=== PATIENT | male | born 1995 | race Caucasian/White ===

== ENCOUNTER 2024-07-14 14:28 | Emergency (ER) | payer MEDICAID ==
[~2024-07-14] VITALS: Ht 167.6 cm; Wt 75.0 kg
[~2024-07-14 14:28] MED LIST: LINE600T14 PO; TOPUD PO
[2024-07-14 14:39] VITALS: O2SAT 100
[2024-07-14] MEDS ORDERED: LORAZEPAM 2MG/ML INJ IV ONE (15:30)
[2024-07-14 15:33] LABS: BASOPHILS % 0.5 % (0.0-2.0); EOSINOPHILS % 1.4 % (0.0-5.0); HEMOGLOBIN. 13.9 g/dL (14.0-18.0); LYMPHOCYTES % 27.1 % (20.0-50.0); MEAN CORPUSCULAR HEMOGLOBIN 30.3 pg (28.0-32.0); MEAN CORPUSCULAR HGB CONC 33.2 g/dL (31.0-37.0); MEAN CORPUSCULAR VOLUME 91.2 fL (80.0-94.0); MEAN PLATELET VOLUME 9.4 fl (7.4-10.4); MONOCYTES % 9.3 % (2.0-8.0); NEUTROPHILS % 61.7 % (40.0-76.0); PLATELET 286 x1000/uL (130-400); RED CELL DISTRIBUTION WIDTH 13.3 % (11.6-14.6); WHITE BLOOD COUNT 8.1 x1000/uL (4.5-11.0)
[2024-07-14 15:38] LABS: CHLORIDE 91 mEq/L (98-107); POTASSIUM 3.5 mEq/L (3.5-5.1); SODIUM 124 mEq/L (136-145)
[2024-07-14 15:39] LABS: CALCIUM 10.3 mg/dL (8.7-10.4); CARBON DIOXIDE 25 mEq/L (21-32)
[2024-07-14 15:44] LABS: GLUCOSE 103 mg/dL (70-105); UREA NITROGEN BLOOD 11 mg/dL (9-23)
[2024-07-14 15:46] LABS: ALANINE AMINOTRANSFERASE 18 IU/L (10-49); ALBUMIN 5.2 g/dL (3.2-4.8); ASPARTATE AMINOTRANSFERASE 29 IU/L (<34); BILIRUBIN DIRECT 0.2 mg/dL (<=3.0); BILIRUBIN TOTAL 0.8 mg/dL (0.1-1.0)
[2024-07-14 15:47] LABS: ETHANOL BLOOD < 10 mg/dL (<10)
[2024-07-14 15:49] LABS: CREATINE KINASE 391 IU/L (46-171)
[2024-07-14] MEDS: SODIUM CHLORIDE 0.9% 1,000 ML IV ONE (15:54)
[2024-07-14] MEDS: ONDANSETRON HCL 4MG/2ML INJ IV STA (15:55)
[2024-07-14] MEDS: KETOROLAC 30MG/ML VIAL IV STA (15:55)
[2024-07-14 17:12] LABS: TROPONIN I HIGH SENSITIVITY < 4 ng/L (3.0-53)
[2024-07-14 17:38] VITALS: BP 149/94; PULSE 80; RESP 17; TEMP 36.89184; O2SAT 100
== END 2024-07-14 17:42 | disposition home or self-care (01) ==
LOC: ER 14:34
DX: R07.89 Other chest pain (principal); F41.9 Anxiety disorder, unspecified; M62.82 Rhabdomyolysis; E87.1 Hypo-osmolality and hyponatremia; I10 Essential (primary) hypertension; F12.10 Cannabis abuse, uncomplicated
CPT/HCPCS: 80076; 80048; 80320; 82550; 83690; 85025; 84484; 36415; 71045; 93005; 96361; 96374; 96375; 99285; J1885; J2405; J7030; G0480

== ENCOUNTER 2024-08-02 22:36 | Emergency (ER) | payer MEDICAID ==
[~2024-08-02] VITALS: Ht 167.6 cm; Wt 73.0 kg
[2024-08-02 22:40] VITALS: O2SAT 100
[2024-08-03] MEDS ORDERED: TETANUS, DIPHTHERIA, PERTUSSIS VAC/PF 0.5ML (>10YR OLD) IM ONE (02:45)
[2024-08-03] MEDS: TETANUS, DIPHTHERIA, PERTUSSIS VAC/PF 0.5ML (>10YR OLD) IM ONE (02:59)
[2024-08-03 03:01] VITALS: BP 127/70; PULSE 87; RESP 15; TEMP 37.05852; O2SAT 100
== END 2024-08-03 03:03 | disposition home or self-care (01) ==
LOC: ER 22:36
DX: S01.81XA Laceration without foreign body of other part of head, initial encounter (principal); F41.9 Anxiety disorder, unspecified; F12.10 Cannabis abuse, uncomplicated; X58.XXXA Exposure to other specified factors, initial encounter; Y93.89 Activity, other specified; Y92.89 Other specified places as the place of occurrence of the external cause; Y99.8 Other external cause status
CPT/HCPCS: 12016; 99283; 90715; 90471; Z7610

== ENCOUNTER 2024-08-08 14:08 | Emergency (ER) | payer MEDICAID ==
[~2024-08-08] VITALS: Ht 167.6 cm; Wt 77.0 kg
[2024-08-08 14:22] VITALS: BP 143/66; O2SAT 100
[2024-08-08] MEDS ORDERED: MUPI15CR11 TP (15:18)
[2024-08-08 15:29] VITALS: PULSE 87; RESP 18; TEMP 36.39180; O2SAT 100
== END 2024-08-08 15:32 | disposition home or self-care (01) ==
LOC: ER 14:08
DX: S01.511A Laceration without foreign body of lip, initial encounter (principal); S01.01XA Laceration without foreign body of scalp, initial encounter; F41.9 Anxiety disorder, unspecified; F12.90 Cannabis use, unspecified, uncomplicated; W18.39XA Other fall on same level, initial encounter; Y93.89 Activity, other specified; Y92.89 Other specified places as the place of occurrence of the external cause; Y99.8 Other external cause status
CPT/HCPCS: 99283

== ENCOUNTER 2024-08-10 09:15 | Emergency (ER) | payer MEDICAID ==
[~2024-08-10] VITALS: Ht 167.6 cm; Wt 69.0 kg
[~2024-08-10 09:15] MED LIST changes: +MUPI15CR11 TP
[2024-08-10 09:22] VITALS: O2SAT 100
[2024-08-10 10:30] VITALS: BP 130/58; PULSE 71; RESP 16; TEMP 36.83628; O2SAT 100
== END 2024-08-10 13:30 | disposition home or self-care (01) ==
LOC: ER 09:25
DX: S01.81XD Laceration without foreign body of other part of head, subsequent encounter (principal); F12.90 Cannabis use, unspecified, uncomplicated; F41.9 Anxiety disorder, unspecified; Z98.890 Other specified postprocedural states; X58.XXXD Exposure to other specified factors, subsequent encounter
CPT/HCPCS: 99281; Z7610